=== PATIENT | male | born 1965 | race Caucasian/White ===

== ENCOUNTER 2017-09-13 08:15 | Day surgery (SDC) | payer BC ==
[~2017-09-13 08:15] MED LIST: Iopamidol 408 MG/ML 50 ML SDV ONE; Lactated Ringers 1,000 ML IV SCH; Sodium Chloride 0.9% 2.5 ML Syringe FLUSH PRN; ceFAZolin 2 GM in Premix Bag 1 BAG IV ONE
[2017-09-13] MEDS ORDERED: Succinylcholine 200 MG/10 ML MDV ONE (08:28)
[2017-09-13] MEDS ORDERED: fentaNYL 100 MCG/2 ML SDV ONE ×2 (08:28→08:39)
[2017-09-13] MEDS ORDERED: Propofol 200 MG/20 ML SDV ONE ×2 (08:28→08:38)
[2017-09-13] MEDS ORDERED: Lidocaine 2% 5 ML SDV ONE ×2 (08:36→08:38)
[2017-09-13] MEDS ORDERED: Ketorolac 30 MG/ML SDV ONE (08:39)
[2017-09-13] MEDS ORDERED: Midazolam 1 MG/ML 2 ML SDV ONE (08:39)
[2017-09-13] MEDS ORDERED: Ondansetron 4 MG/2 ML SDV ONE (08:39)
[2017-09-13] MEDS ORDERED: Rocuronium 10 MG/ML 10 ML Syringe ONE (08:39)
[2017-09-13] MEDS ORDERED: ceFAZolin/Dextrose,Iso-Osmotic 2 GM/50 ML Duplex Bag IV ONE (09:14)
--- NOTE | 2017-09-13 09:21 | PCM.PREANE ---
Preanesthetic Assessment - Procedure Proposed Procedure: ESWL - Anesthesia/Transfusion/Family Hx Anesthesia History: Prior Anesthesia Without Reaction Transfusion History: No Prior Transfusion(s) Intubation History: Unknown - Review of Systems General: No Symptoms Pulmonary: No Symptoms Cardiovascular: No Symptoms Gastrointestinal: Abdominal Pain (flank, mild) Neurological: No Symptoms Other: Reports: None - Physical Assessment NPO Status Date: 09/12/17 NPO Status Time: 20:00 O2 Sat by Pulse Oximetry: 97 Respiratory Rate: 16 Vital Signs: Last Vital Signs Temp 97.0 F 09/13/17 08:20 Pulse 61 09/13/17 08:20 Resp 16 09/13/17 08:20 BP 120/76 09/13/17 08:20 Pulse Ox 97 09/13/17 08:20 Height: 5 ft 5 in Weight: 200 lb ASA Class: 2 Mental Status: Alert & Oriented x3 Airway Class: Mallampati = 2 Dentition: Reports: Normal Dentition Thyro-Mental Finger Breadths: 3 (bearded) Mouth Opening Finger Breadths: 3 Lungs: Clear to Auscultation, Normal Respiratory Effort Cardiovascular: Regular Rate, Regular Rhythm, No Murmurs - Allergies Allergies/Adverse Reactions: Allergies Allergy/AdvReac Type Severity Reaction Status Date / Time No Known Allergies Allergy Verified 09/10/17 10:31 - Blood Blood Available: No Product(s) Available: None - Acknowledgements Anesthesia Type Planned: General Anesthesia Pt an Appropriate Candidate for the Planned Anesthesia: Yes Alternatives and Risks of Anesthesia Discussed w Pt/Guardian: Yes Pt/Guardian Understands and Agrees with Anesthesia Plan: Yes Additional Comments: at bedside. all questions answered and consent signed. PreAnesthesia Questionnaire Other HEENT History: wears glasses Musculoskeletal History: Reports: Fracture Other Musculoskeletal History: hx of fx arm (no hardware) Neurological History: Reports: Other (See Below) Other Neuro History: hx of motion sickness Endocrine/Metabolic History: Reports: Obesity/BMI 30+ - Past Surgical History HEENT Surgical History: Reports: Oral Surgery Other HEENT Surgeries/Procedures: peridontal surgery x2 GI Surgical History: Reports: Colonoscopy Male Surgical History: Reports: Vasectomy Other Male Surgeries/Procedures: reversal of vasectomy - SUBSTANCE USE Smoking Status *Q: Never Smoker Recreational Drug Use History: No - HOME MEDS Home Medications: Home Meds . [No Known Home Meds] 09/10/17 [History] - CURRENT (IN HOUSE) MEDS Current Meds: Current Medications Lactated Ringer's (Ringers, Lactated) 1,000 mls @ 100 mls/hr IV ASDIRECTED EDDIE Last Admin: 09/13/17 08:27 Dose: 100 mls/hr Sodium Chloride (Saline Flush) 2.5 ml FLUSH ASDIRECTED PRN PRN Reason: Keep Vein Open Discontinued Medications Cefazolin Sodium/Dextrose (Ancef) Confirm Administered Dose 2 gm IV .STK-MED ONE Stop: 09/13/17 09:15 Fentanyl (Sublimaze) Confirm Administered Dose 200 mcg .ROUTE .STK-MED ONE Stop: 09/13/17 08:29 Fentanyl (Sublimaze) Confirm Administered Dose 100 mcg .ROUTE .STK-MED ONE Stop: 09/13/17 08:40 Cefazolin Sodium/Dextrose 2 gm (/ Premix) 50 mls @ 100 mls/hr IV ONCALL ONE Stop: 09/13/17 00:30 Iopamidol (Isovue-200 (41%)) Confirm Administered Dose 50 ml .ROUTE .STK-MED ONE Stop: 09/13/17 07:19 Ketorolac Tromethamine (Toradol) Confirm Administered Dose 30 mg .ROUTE .STK- MED ONE Stop: 09/13/17 08:40 Lidocaine (Xylocaine-Mpf 2%) Confirm Administered Dose 5 ml .ROUTE .STK-MED ONE Stop: 09/13/17 08:37 Lidocaine (Xylocaine-Mpf 2%) Confirm Administered Dose 5 ml .ROUTE .STK-MED ONE Stop: 09/13/17 08:39 Midazolam HCl (Versed 1 Mg/Ml) Confirm Administered Dose 2 mg .ROUTE .STK-MED ONE Stop: 09/13/17 08:40 Ondansetron HCl (Zofran) Confirm Administered Dose 4 mg .ROUTE .STK-MED ONE Stop: 09/13/17 08:40 Propofol (Diprivan 20 Ml) Confirm Administered Dose 400 mg .ROUTE .STK-MED ONE Stop: 09/13/17 08:29 Propofol (Diprivan 20 Ml) Confirm Administered Dose 200 mg .ROUTE .STK-MED ONE Stop: 09/13/17 08:39 Rocuronium [place] (Zemuron) Confirm Administered Dose 100 mg .ROUTE .STK-MED ONE Stop: 09/13/17 08:40 Succinylcholine Chloride (Quelicin) Confirm Administered Dose 200 mg .ROUTE .STK -MED ONE Stop: 09/13/17 08:29
[2017-09-13] MEDS ORDERED: ePHEDrine 50 MG/ML SDV ONE (10:04)
[2017-09-13] MEDS ORDERED: Glycopyrrolate 0.2 MG/ML SDV ONE (10:16)
[2017-09-13] MEDS ORDERED: Neostigmine Methylsulfate 1 MG/ML 5 ML Syringe ONE (10:16)
[2017-09-13] MEDS ORDERED: fentaNYL 100 MCG/2 ML SDV IVPUSH PRN (10:33)
--- NOTE | 2017-09-13 11:14 | PCM.POSTAN ---
POST ANESTHESIA ASSESSMENT - MENTAL STATUS Mental Status: Alert, Oriented - VITAL SIGNS Pulse Rate: 77 SaO2: 96 (RA) Resp Rate: 14 Blood Pressure: 119/64 Temperature: 98.8 F - RESPIRATORY Respiratory Status: Respiratory Rate WNL, Airway Patent, O2 Saturation Stable - CARDIOVASCULAR CV Status: Pulse Rate WNL, Blood Pressure Stable - GASTROINTESTINAL GI Status: No Symptoms - POST OP HYDRATION Hydration Status: Adequate & Stable
--- NOTE | 2017-09-13 11:41 | PCM48HPAN ---
Post Anesthesia Note - EVALUATION WITHIN 48HRS OF ANESTHETIC Vital Signs in Normal Range: Yes Patient Participated in Evaluation: Yes Respiratory Function Stable: Yes Airway Patent: Yes Cardiovascular Function Stable: Yes Hydration Status Stable: Yes Pain Control Satisfactory: Yes Nausea and Vomiting Control Satisfactory: Yes Mental Status Recovered: Yes Pulse Rate: 77 Resp Rate: 15 Temperature: 98.8 F Blood Pressure: 119/64 - COMMENTS/OBSERVATIONS Free Text/Narrative:: Taking nourishment, ready to travel home on discharge per Dr. Keen direction.
--- NOTE | 2017-09-13 14:36 | OR ---
SURGEON: Kellen Keen M.D. DATE OF PROCEDURE: 09/13/2017 PREOPERATIVE DIAGNOSIS: Right renal pelvis stone, 1 cm. POSTOPERATIVE DIAGNOSIS: Right renal pelvis stone, 1 cm. OPERATION: ESWL. DESCRIPTION OF PROCEDURE: The patient was given general anesthesia. He is on the lithotripsy table. The position of the patient was adjusted, so the stone could be treated. Eventually, received a total of 2500 shocks at the end of the treatment and monitoring occasionally as he was going through the treatment. The stone shadow changed significantly and it appears to have been broken adequately. With that done, the procedure was terminated, and the patient was moved to recovery room in good condition. PLAN: He will come back to see me in 6 weeks. He will have a KUB prior to that. He will be sent home on both Lorcet 5-325 and Flomax. SUSIE / ESTEFANIA /[id number]
== END 2017-09-13 11:55 | disposition home or self-care (01) ==
LOC: MW.SDS 08:15
PROVIDERS: ATTEND Urology
DX: N20.0 Calculus of kidney (principal); E66.9 Obesity, unspecified; Z68.34 Body mass index [BMI] 34.0-34.9, adult
CPT/HCPCS: 50590; J0330; J0690; J1885; J2250; J2405; J3010; J7120; Q9966; J2704

== ENCOUNTER 2017-11-15 07:04 | Day surgery (SDC) | payer BC ==
[~2017-11-15 07:04] MED LIST changes: -Iopamidol 408 MG/ML 50 ML SDV ONE; +Sodium Chloride 0.9% 10 ML Syringe FLUSH PRN; -ceFAZolin 2 GM in Premix Bag 1 BAG IV ONE
[2017-11-15] MEDS ORDERED: Lidocaine 2% 5 ML SDV ONE (07:21)
[2017-11-15] MEDS ORDERED: Propofol 200 MG/20 ML SDV ONE (07:21)
[2017-11-15] MEDS ORDERED: fentaNYL 250 MCG/5 ML SDV ONE (07:21)
[2017-11-15] MEDS ORDERED: Midazolam 1 MG/ML 2 ML SDV ONE (07:21)
[2017-11-15] MEDS ORDERED: Glycopyrrolate 0.2 MG/ML SDV ONE ×2 (07:23→08:33)
[2017-11-15] MEDS ORDERED: Ketorolac 30 MG/ML SDV ONE (07:23)
[2017-11-15] MEDS ORDERED: Neostigmine Methylsulfate 1 MG/ML 5 ML Syringe ONE (07:23)
[2017-11-15] MEDS ORDERED: Rocuronium 10 MG/ML 10 ML Syringe ONE (07:23)
[2017-11-15] MEDS ORDERED: Ondansetron 4 MG/2 ML SDV ONE (07:23)
--- NOTE | 2017-11-15 07:42 | PCM.PREANE ---
Preanesthetic Assessment - Procedure Proposed Procedure: 2nd ESWL for kidney stone - Anesthesia/Transfusion/Family Hx Anesthesia History: Prior Anesthesia Without Reaction Family History of Anesthesia Reaction: No Transfusion History: No Prior Transfusion(s) Intubation History: Unknown - Review of Systems General: No Symptoms Pulmonary: No Symptoms Cardiovascular: No Symptoms Gastrointestinal: No Symptoms Neurological: No Symptoms Other: Reports: None - Physical Assessment NPO Status Date: 11/14/17 NPO Status Time: 22:00 O2 Sat by Pulse Oximetry: 97 Respiratory Rate: 16 Vital Signs: Last Vital Signs Temp 97.7 F 11/15/17 07:21 Pulse 51 L 11/15/17 07:21 Resp 16 11/15/17 07:21 BP 122/72 11/15/17 07:21 Pulse Ox 97 11/15/17 07:21 Height: 6 ft 1 in Weight: 258 lb ASA Class: 2 Mental Status: Alert & Oriented x3 Airway Class: Mallampati = 2 Dentition: Reports: Normal Dentition Thyro-Mental Finger Breadths: 3 (bearded) Mouth Opening Finger Breadths: 3 ROM/Head Extension: Full Lungs: Clear to Auscultation, Normal Respiratory Effort Cardiovascular: Regular Rate, Regular Rhythm, No Murmurs - Allergies Allergies/Adverse Reactions: Allergies Allergy/AdvReac Type Severity Reaction Status Date / Time No Known Allergies Allergy Verified 11/09/17 16:16 - Blood Blood Available: No Product(s) Available: None - Anesthesia Plan Pre-Op Medication Ordered: None - Acknowledgements Anesthesia Type Planned: General Anesthesia (OETT) Pt an Appropriate Candidate for the Planned Anesthesia: Yes Alternatives and Risks of Anesthesia Discussed w Pt/Guardian: Yes Pt/Guardian Understands and Agrees with Anesthesia Plan: Yes PreAnesthesia Questionnaire Other HEENT History: wears glasses Genitourinary History: Reports: Renal Calculus Musculoskeletal History: Reports: Fracture Other Musculoskeletal History: hx of fx arm (no hardware) Neurological History: Reports: Other (See Below) Other Neuro History: hx of motion sickness Endocrine/Metabolic History: Reports: Obesity/BMI 30+ - Past Surgical History Head Surgeries/Procedures: Reports: None HEENT Surgical History: Reports: Oral Surgery Other HEENT Surgeries/Procedures: peridontal surgery x2 GI Surgical History: Reports: Colonoscopy Male Surgical History: Reports: Lithotripsy (ESWL), Vasectomy Other Male Surgeries/Procedures: reversal of vasectomy - SUBSTANCE USE Smoking Status *Q: Never Smoker Recreational Drug Use History: No - HOME MEDS Home Medications: Home Meds . [No Known Home Meds] 09/10/17 [History] - CURRENT (IN HOUSE) MEDS Current Meds: Current Medications Lactated Ringer's (Ringers, Lactated) 1,000 mls @ 100 mls/hr IV ASDIRECTED EDDIE Last Admin: 11/15/17 07:25 Dose: 100 mls/hr Sodium Chloride (Saline Flush) 10 ml FLUSH ASDIRECTED PRN PRN Reason: Keep Vein Open Sodium Chloride (Saline Flush) 2.5 ml FLUSH ASDIRECTED PRN PRN Reason: Keep Vein Open Discontinued Medications Fentanyl (Sublimaze) Confirm Administered Dose 250 mcg .ROUTE .STK-MED ONE Stop: 11/15/17 07:22 Glycopyrrolate (Robinul) Confirm Administered Dose 0.6 mg .ROUTE .STK-MED ONE Stop: 11/15/17 07:24 Ketorolac Tromethamine (Toradol) Confirm Administered Dose 30 mg .ROUTE .STK- MED ONE Stop: 11/15/17 07:24 Lidocaine (Xylocaine-Mpf 2%) Confirm Administered Dose 10 ml .ROUTE .STK-MED ONE Stop: 11/15/17 07:22 Midazolam HCl (Versed 1 Mg/Ml) Confirm Administered Dose 2 mg .ROUTE .STK-MED ONE Stop: 11/15/17 07:22 Neostigmine Methylsulfate (Neostigmine) Confirm Administered Dose 5 mg .ROUTE .STK-MED ONE Stop: 11/15/17 07:24 Ondansetron HCl (Zofran) Confirm Administered Dose 4 mg .ROUTE .STK-MED ONE Stop: 11/15/17 07:24 Propofol (Diprivan 20 Ml) Confirm Administered Dose 400 mg .ROUTE .STK-MED ONE Stop: 11/15/17 07:22 Rocuronium [place] (Zemuron) Confirm Administered Dose 100 mg .ROUTE .STK-MED ONE Stop: 11/15/17 07:24
[2017-11-15] MEDS ORDERED: ePHEDrine 50 MG/ML SDV ONE (08:26)
[2017-11-15] MEDS ORDERED: fentaNYL 100 MCG/2 ML SDV IVPUSH PRN (09:18)
--- NOTE | 2017-11-15 09:42 | PCM.POSTAN ---
POST ANESTHESIA ASSESSMENT - MENTAL STATUS Mental Status: Alert, Oriented - RESPIRATORY Respiratory Status: Respiratory Rate WNL, Airway Patent, O2 Saturation Stable - CARDIOVASCULAR CV Status: Pulse Rate WNL, Blood Pressure Stable - GASTROINTESTINAL GI Status: No Symptoms - PAIN Pain Score: 0 - POST OP HYDRATION Hydration Status: Adequate & Stable - OBSERVATIONS Free Text/Narrative:: Pt stable with no pain or nausea at this time
--- NOTE | 2017-11-15 10:21 | PCM48HPAN ---
Post Anesthesia Note - EVALUATION WITHIN 48HRS OF ANESTHETIC Vital Signs in Normal Range: Yes Patient Participated in Evaluation: Yes Respiratory Function Stable: Yes Airway Patent: Yes Cardiovascular Function Stable: Yes Hydration Status Stable: Yes Pain Control Satisfactory: Yes Nausea and Vomiting Control Satisfactory: Yes Mental Status Recovered: Yes Resp Rate: 14 - COMMENTS/OBSERVATIONS Free Text/Narrative:: Pt doing well post op with no complaints of pain or nausea.
--- NOTE | 2017-11-15 11:38 | OR ---
SURGEON: Kellen Keen M.D. DATE OF PROCEDURE: 11/15/2017 PREOPERATIVE DIAGNOSIS: Residual right renal pelvis stone, 5 mm. POSTOPERATIVE DIAGNOSIS: Residual right renal pelvis stone, 5 mm. OPERATION: ESWL. HISTORY: The patient had ESWL for a 1 cm right renal pelvis stone approximately a month ago. At the time, it appeared that the stone had been completely broken up. However, followup KUB done because the initial size of the stone revealed there was about 5-mm stone left. So he is in getting an ESWL done on that stone. The previous stone was calcium oxalate monohydrate. DESCRIPTION OF PROCEDURE: The patient was given general anesthesia. His position was adjusted, so the stone could be treated and eventually received a total of 2600 shocks. At the end of the treatment, the stone appeared to have broken up into a multitude of smaller fragments. With that done, the procedure was terminated. The patient was moved to recovery room in good condition. SUSIE / ESTEFANIA /[id number]
== END 2017-11-15 10:49 | disposition home or self-care (01) ==
LOC: MW.SDS 07:04
PROVIDERS: ATTEND Urology
DX: N20.0 Calculus of kidney (principal); Z79.899 Other long term (current) drug therapy
CPT/HCPCS: 50590; J1885; J2250; J2405; J3010; J7120; J2704